=== PATIENT | male | born 1945 | race Caucasian/White ===

== ENCOUNTER 2017-04-16 01:30 | Emergency (ER) | payer MEDICARE, OTHER ==
[~2017-04-16] VITALS: Ht 182.9 cm; Wt 82.0 kg
[~2017-04-16 01:30] MED LIST: CIPR500T2 PO; LORT5TAB PO
[2017-04-16 01:31] VITALS: BP 146/74; PULSE 70; RESP 16; TEMP 98.4; O2SAT 95
--- NOTE | 2017-04-16 03:16 | PD ---
HPI Chief Complaint: Pain: Acute or Chronic Time Seen by Provider: 02:55 Travel History International Travel<30 days: No Contact w/Intl Traveler<30days: No Traveled to known affect area: No History of Present Illness HPI Patient is a very pleasant 71-year-old male presents emergency department for evaluation of left-sided thoracic back pain. Patient states been going on for 2 weeks worse when he is lying down. Initially thought it was a muscle strain but went to his physician who ordered a CAT scan of his abdomen. He is not yet known the results of that and it was performed just last week. No fevers no weight loss nausea vomiting diarrhea constipation cough. Patient is concerned as he thought he felt a lump in his back and wonders if there might be a mass coming in. States is also a similar area for where he had a skin cancer removed which was remote. [facility] Past Medical History Asthma: Yes Past Surgical History Other Surgery: Yes (UMBILICAL HERNIA) Social History Alcohol Use: Yes (Occasional) Tobacco Use: No Substance Use: No Allergies-Medications (Allergen,Severity, Reaction): Coded Allergies: Contrast Media (Verified Allergy, Severe, Anaphylaxis, 04/16/17) Penicillin (Verified Allergy, Mild, unknown, 04/16/17) Reported Meds & Prescriptions Reported Meds & Active Scripts Active Lortab 5/500 (Acetaminophen/Hydrocodone Bitart) 5 Mg/500 Mg Tab 1-2 Tab PO Q6HPRN FOR PAIN Cipro (Ciprofloxacin) 500 Mg Tab 500 Mg PO BID Lortab 5/500 (Acetaminophen/Hydrocodone Bitart) 5 Mg/500 Mg Tab 1 Tab PO Q 6 HOUR PRN Review of Systems Except as stated in HPI: all other systems reviewed are Neg Physical Exam Narrative GENERAL: Well-nourished, well-developed patient. SKIN: Focused skin assessment warm/dry. The area of his complaints has no mass and no rash. There is an overlying angela hemangioma but a benign lesion. No skin cancers seen. HEAD: Normocephalic. EYES: No scleral icterus. No injection or drainage. NECK: Supple, trachea midline. No JVD or lymphadenopathy. CARDIOVASCULAR: Regular rate and rhythm without murmurs, gallops, or rubs. RESPIRATORY: Breath sounds equal bilaterally. No accessory muscle use. GASTROINTESTINAL: Abdomen soft, non-tender, nondistended. MUSCULOSKELETAL: No cyanosis, or edema. The area of his tenderness is the left of midline and could not reproduce his tenderness. There is approximately the T8 level. There is no midline T-spine or L-spine or C-spine tenderness or step- off. BACK: Nontender without obvious deformity. No CVA tenderness. Data Data Last Documented VS Vital Signs Date Time Temp Pulse Resp B/P Pulse Ox O2 Delivery O2 Flow Rate FiO2 04/16/17 01:31 98.4 70 16 146/74 95 Room Air Orders Ibuprofen (Motrin) (04/16/17 03:30) MDM Medical Decision Making Medical Screen Exam Complete: Yes Emergency Medical Condition: Yes Differential Diagnosis Back pain, back strain, back fracture, Narrative Course Patient roomed emergency department, appears in no distress, he states his been taking nonopiate pain medications at home but does have a supply of muscle relaxers no pain medication if he should need. Does have a CAT scan dated April 10 of this year of his abdomen and pelvis, "#1 no evidence of nephrolithiasis or obstructive uropathy. #2 calcified hepatic and splenic granulomas. #3 no evidence of acute process suspicious mass or lymphadenopathy." I reviewed the images and see no bony abnormality. Furthermore the radiologist documented that the "bony structures: Unremarkable." This report was printed and reviewed with the patient and he feels reassured by this. He was offered ibuprofen emerge department and accepted. He is stable for discharge at this time no further emergent workup is indicated at this time. Diagnosis Primary Impression: Back pain Disposition: 01 DISCHARGE HOME Condition: Stable Armando Field MD Apr 16, 2017 03:16
[2017-04-16] MEDS ORDERED: IBUPROFEN 600 MG TAB PO ONE (03:30)
== END 2017-04-16 03:53 | disposition home or self-care (01) ==
LOC: NEPE 01:30
DX: M54.6 Pain in thoracic spine (principal)
CPT/HCPCS: 99281